=== PATIENT | male | born 1990 | race Caucasian/White ===

== ENCOUNTER 2021-03-09 18:30 | Emergency (ER) | payer OTHER, SELFPAY ==
[2021-03-09] MEDS ORDERED: Ibuprofen 200 MG TAB ONE (20:09)
[2021-03-09] MEDS ORDERED: Lidocaine 1% w/Epinephrine 1:100K 20 ML VIAL ONE (20:21)
== END 2021-03-09 21:27 | disposition home or self-care (01) ==
LOC: ERS 18:30
DX: S81.811A Laceration without foreign body, right lower leg, initial encounter (principal); S50.311A Abrasion of right elbow, initial encounter; V86.96XA Unspecified occupant of dirt bike or motor/cross bike injured in nontraffic accident, initial encounter
CPT/HCPCS: 12002

== ENCOUNTER 2021-03-24 13:42 | Emergency (ER) | payer SELFPAY | END 2021-03-24 14:27 | disposition home or self-care (01) | LOC: ERS 13:42 | DX: S81.811D Laceration without foreign body, right lower leg, subsequent encounter (principal) ==